=== PATIENT | female | born 1960 | race Caucasian/White ===

== ENCOUNTER 2018-05-16 15:51 | Emergency (ER) | payer SELFPAY ==
[2018-05-16] MEDS ORDERED: MECLIZINE HCL 25 MG TABLET PO ONE (16:16)
--- NOTE | 2018-05-16 16:16 | ER Document Report ---
ED Medical Screen (RME) - General Chief Complaint: Palpitations Stated Complaint: DIZZY Time Seen by Provider: 05/16/18 16:14 Primary Care Provider: NICOLAS LEE [Primary Care Provider] - Follow up as needed Notes: 57 years old female presents today with ringing sensation in both ears, dizziness and spinning sensation for the last few days. Today it first none stoppable therefore present to the ED nauseous lightheadedness but no vomiting. No focal weakness numbness tingling sensation. Examination is benign - Related Data Allergies/Adverse Reactions: Sulfa (Sulfonamide Antibiotics) Allergy (Verified 05/16/18 15:56) Physical Exam - Vital signs Vitals: Temp Pulse Resp BP Pulse Ox 98.6 F 83 16 181/85 H 96 05/16/18 16:05 05/16/18 16:05 05/16/18 16:05 05/16/18 16:05 05/16/18 16:05 Course - Vital Signs Vital signs: Temp Pulse Resp BP Pulse Ox 98.6 F 83 16 181/85 H 96 05/16/18 16:05 05/16/18 16:05 05/16/18 16:05 05/16/18 16:05 05/16/18 16:05 Doctor's Discharge - Discharge Referrals: NICOALS LEE [Primary Care Provider] - Follow up as needed
[2018-05-16 17:31] LABS: ABSOLUTE BASOPHILS # (AUTO) 0.1 10^3/uL (0.0-0.2); ABSOLUTE EOSINOPHILS # (AUTO) 0.2 10^3/uL (0.0-0.6); ABSOLUTE LYMPHOCYTES (AUTO) 1.9 10^3/uL (0.5-4.7); ABSOLUTE MONOCYTES (AUTO) 0.4 10^3/uL (0.1-1.4); ABSOLUTE NEUT (AUTO) 2.6 10^3/uL (1.7-8.2); BASOPHILS % (AUTO) 1.3 % (0-2); EOSINOPHILS % (AUTO) 4.4 % (0-6); HEMATOCRIT 35.4 % (36.0-47.0); HEMOGLOBIN 12.8 g/dL (12.0-15.5); LYMPHOCYTES % (AUTO) 36.5 % (13-45); MEAN CORPUSCULAR HEMOGLOBIN 31.1 pg (27.0-33.4); MEAN CORPUSCULAR HGB CONC 36.3 g/dL (32.0-36.0); MEAN CORPUSCULAR VOLUME 86 fl (80-97); MONOCYTES % (AUTO) 7.2 % (3-13); PLATELET COUNT 268 10^3/uL (150-450); RED BLOOD COUNT 4.13 10^6/uL (3.72-5.28); RED CELL DISTRIBUTION WIDTH 14.2 % (11.5-14.0); SEGMENTED NEUTROPHILS % (AUTO) 50.6 % (42-78); TOTAL CELLS COUNTED % (AUTO) 100 %; WHITE BLOOD COUNT 5.2 10^3/uL (4.0-10.5)
[2018-05-16 17:45] LABS: ALANINE AMINOTRANSFERASE 8 U/L (9-52); ALBUMIN 4.2 g/dL (3.5-5.0); ALKALINE PHOSPHATASE 92 U/L (38-126); ANION GAP 8 (5-19); ASPARTATE AMINO TRANSFERASE 16 U/L (14-36); BILIRUBIN,DIRECT 0.2 mg/dL (0.0-0.4); BILIRUBIN,TOTAL 0.4 mg/dL (0.2-1.3); BLOOD UREA NITROGEN 11 mg/dL (7-20); CALCIUM 9.1 mg/dL (8.4-10.2); CARBON DIOXIDE 26 mmol/L (22-30); CHLORIDE 101 mmol/L (98-107); GLUCOSE 109 mg/dL (75-110); POTASSIUM 3.6 mmol/L (3.6-5.0); SODIUM 134.9 mmol/L (137-145); TOTAL PROTEIN 7.2 g/dL (6.3-8.2)
--- NOTE | 2018-05-16 17:45 | RADIOLOGY REPORT (SQ) ---
EXAM DESCRIPTION: CT HEAD WITHOUT COMPLETED DATE/TIME: 05/16/2018 5:34 pm REASON FOR STUDY: Dizziness COMPARISON: None. TECHNIQUE: Axial images acquired through the brain without intravenous contrast. Images reviewed wi th bone, brain and subdural windows. Additional sagittal and coronal reconstructions were generated. Images stored on PACS. All CT scanners at this facility use dose modulation, iterative reconstruction, and/or weight based d osing when appropriate to reduce radiation dose to as low as reasonably achievable (ALARA). [facility]: Dose Right [facility]: CareDose [facility]: Dose Right [facility]: Teradose 4D [facility]: PEPperPRINT RADIATION DOSE: CT Rad equipment meets quality standard of care and radiation dose reduction techniq ues were employed. CTDIvol: 53.2 mGy. DLP: 964 mGy-cm. mGy. LIMITATIONS: None. FINDINGS: VENTRICLES: Normal size and contour. CEREBRUM: No masses. No hemorrhage. No midline shift. No evidence for acute infarction. Normal gra y/white matter differentiation. No areas of low density in the white matter. CEREBELLUM: No masses. No hemorrhage. No alteration of density. No evidence for acute infarction. EXTRAAXIAL SPACES: No fluid collections. No masses. ORBITS AND GLOBE: No intra- or extraconal masses. Normal contour of globe without masses. CALVARIUM: No fracture. PARANASAL SINUSES: No fluid or mucosal thickening. SOFT TISSUES: No mass or hematoma. OTHER: No other significant finding. IMPRESSION: NORMAL BRAIN CT WITHOUT CONTRAST. EVIDENCE OF ACUTE STROKE: NO. COMMENT: Quality ID # [id number]: Final reports with documentation of one or more dose reduction techniques (e.g., Automated exposure control, adjustment of the mA and/or kV according to patient size, use of iterative reconstruction technique) TECHNICAL DOCUMENTATION: JOB ID: [id number] [employer]- All Rights Reserved Reading location - IP/workstation name: [email or web address]
--- NOTE | 2018-05-16 19:30 | ER Document Report ---
ED General - General Chief Complaint: Palpitations Stated Complaint: DIZZY Time Seen by Provider: 05/16/18 16:14 Primary Care Provider: [facility] [Provider Group] - 05/20/18 Notes: Patient is a 57 year old female that comes to the emergency department for chief complaint of an episode prior to arrival where she had color changes and flashes of lights in her vision followed by a throbbing headache. She states she also has had intermittent lightheadedness for about 3 weeks. She states that for "a long time" she will get palpitations and a sensation of tightness in her chest, she did have this earlier today as well although she states she has this daily. She denies shortness of breath, nausea or vomiting, fever or chills. She states her headache is almost completely gone on its own. She denies any focal numbness or weakness. She takes no daily medications, smokes daily, denies any medical history except migraines and termination of a molar . She does state with her typical migraine before the headache she will get flashes of light preceding the headache. She does not see primary care. She denies alcohol or recreational drugs. She states now she just feels hungry. 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 Renal/ Medical History: Denies: Hx Peritoneal Dialysis Past Surgical History: Reports: 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, - Immunizations Immunizations up to date: Yes Hx Diphtheria, Pertussis, Tetanus Vaccination: Yes Review of Systems - Review of Systems Constitutional: No symptoms reported EENT: No symptoms reported Cardiovascular: See HPI Respiratory: No symptoms reported Gastrointestinal: No symptoms reported Genitourinary: No symptoms reported Female Genitourinary: No symptoms reported Musculoskeletal: No symptoms reported Skin: No symptoms reported Hematologic/Lymphatic: No symptoms reported Neurological/Psychological: See HPI Physical Exam - Vital signs Vitals: Temp Pulse Resp BP Pulse Ox 98.6 F 83 16 181/85 H 96 02/28/19 16:05 05/16/18 16:05 05/16/18 16:05 05/16/18 16:05 05/16/18 16:05 - Notes Notes: GENERAL: Alert, interacts well. No acute distress. HEAD: Normocephalic, atraumatic. EYES: Pupils equal, round, and reactive to light. Extraocular movements intact. ENT: Oral mucosa moist, tongue midline. Oropharynx unremarkable. Airway patent. Nares patent, no nasal septal hematoma, TM's intact. NECK: Full range of motion. Supple. Trachea midline. LUNGS: Clear to auscultation bilaterally, no wheezes, rales, or rhonchi. No respiratory distress. HEART: Regular rate and rhythm. No murmur ABDOMEN: Soft, non-tender. Non-distended. Bowel sounds present in all 4 quadrants. GENITOURINARY: Deferred EXTREMITIES: Moves all 4 extremities spontaneously. No edema, normal radial and dorsalis pedis pulses bilaterally. No cyanosis. BACK: no cervical, thoracic, lumbar midline tenderness. No saddle anesthesia, normal distal neurovascular exam. NEUROLOGICAL: Alert and oriented x3. Normal speech. [cranial nerves II through XII grossly intact]. PSYCH: Joking mood, slightly flippant SKIN: Warm, dry, normal turgor. No rashes or lesions noted. Course - Re-evaluation Re-evalutation: Patient reports her headache is resolved. She describes probably an aura before the headache, she denies ringing in the ears to me or any focal numbness or weakness. She has a normal neurological exam, she is smiling, talkative, laughing, well-appearing. She declines anything for headache, states she is just hungry, she states that she had chest discomfort earlier but states she has this every day, she had hypertension initially but this significantly improved after arrival. Based of her lack of the current headache I have very low suspicion of acute etiology for this. Chest x-ray unremarkable, EKG sinus rhythm with no T wave inversions or ST segment changes in consecutive leads. CBC unremarkable, chemistry unremarkable, troponin is negative. CAT scan of the head is unremarkable. I reevaluated patient. No current complaints, requesting to leave. Her blood pressure is borderline high. She states every time she has not checked it was high and she is supposed to be on blood pressure medication. She cannot recall the medication she is supposed to be on. Patient will need primary care follow- up, initially she was resistant to this but then she states she wants it. Discussed smoking cessation. Provided with a hypertension medication, discussed follow-up and strict return precautions in detail with patient and sister at bedside. They state understanding and agreement. Stable at time of discharge. - Vital Signs Vital signs: Temp Pulse Resp BP Pulse Ox 98.2 F 74 20 168/97 H 98 05/16/18 19:40 05/16/18 19:40 05/16/18 20:02 05/16/18 20:02 05/16/18 20:02 - Laboratory Result Diagrams: 05/16/18 17:11 05/16/18 17:11 Laboratory results interpreted by me: 05/16/18 05/16/18 17:11 17:11 Hct 35.4 L MCHC 36.3 H RDW 14.2 H Sodium 134.9 L ALT 8 L Discharge - Discharge Clinical Impression: Essential hypertension, Dizziness Headache Qualifiers: Headache type: unspecified Headache chronicity pattern: acute headache Intractability: not intractable Qualified Code(s): R51 - Headache Condition: Stable Disposition: HOME, SELF-CARE Additional Instructions: Your workup does not show any concerning findings at this time. Your symptoms are most suggestive of a migraine that resolved. Your symptoms also suggest a mild vertigo, take meclizine as needed for this. Your blood pressure needs to be controlled, we have started you on initial daily blood pressure medication, follow-up with the referral listed for additional monitoring and management. Return to the emergency department for any concerning symptoms including returned or severe headache, vomiting, difficulty breathing, passing out, pain in your chest, numbness on one side of your body, or any other concerning or worsening symptoms. Prescriptions: Lisinopril [Prinivil 10 mg Tablet] 10 mg PO DAILY #30 tablet Meclizine HCl [Antivert 25 mg Tablet] 25 mg PO TID PRN #21 tablet PRN Reason: Forms: Return to Work Referrals: [facility] [Provider Group] - 05/20/18
--- NOTE | 2018-05-16 21:44 | RADIOLOGY REPORT (SQ) ---
EXAM DESCRIPTION: XR CHEST 1 VIEW COMPLETED DATE/TME: 05/16/2018 19:53 CLINICAL HISTORY: 57 years, Female, palpiations, chest discomfort Comparison: None FINDINGS: No focal lung consolidation. No pleural effusion. No pneumothorax. Cardiac and mediastinal silhouette is unremarkable. No acute osseous abnormality. Soft tissues are unremarkable. IMPRESSION: No acute findings. No focal lung consolidation.
[2018-05-16 22:09] VITALS: BP 168/97
--- NOTE | 2018-05-16 22:21 | EKG REPORT ---
SEVERITY:- NORMAL ECG - SINUS RHYTHM : Confirmed by: Chio Anderson 16-May-2018 22:21:03
== END 2018-05-16 22:09 | disposition home or self-care (01) ==
LOC: ER 15:51
DX: R42 Dizziness and giddiness (principal); R51 Headache; R00.2 Palpitations; F17.200 Nicotine dependence, unspecified, uncomplicated; I10 Essential (primary) hypertension; Z88.2 Allergy status to sulfonamides
CPT/HCPCS: 36415; 70450; 71045; 80053; 84484; 85025; 93005; 93010; 99285